=== PATIENT | female | born 1960 | race Caucasian/White ===

== ENCOUNTER → 2021-05-19 17:06 | Outpatient (CLI) | payer OTHER, MEDICAID, SELFPAY ==
[2021-05-19 18:07] LABS: COVID19 -Nasal RAPID POSITIVE (Negative)
== END ==
PROVIDERS: Visit Provider Nurse Practitioner Family
DX: U07.1 COVID-19 (principal)
CPT/HCPCS: 87635

== ENCOUNTER → 2023-05-18 18:41 | Outpatient (CLI) | payer OTHER, SELFPAY | PROVIDERS: Visit Provider Physician Assistant | DX: R30.0 Dysuria (principal) | CPT/HCPCS: 87077; 87086; 87186 ==